=== PATIENT | male | born 1955 | race Caucasian/White ===

== ENCOUNTER 2020-09-20 19:23 | Inpatient (IN) | payer MEDICARE, OTHER ==
[~2020-09-20] VITALS: Ht 175.3 cm; Wt 78.0 kg
--- NOTE | 2020-09-20 19:50 | NUR ---
PATIENT WAS SEEN BY MD. HE IS AWAKE AND ALERT. EKG DONE. PT TO GO TO CT NOW...
[2020-09-20] MEDS ORDERED: MELA5TAB PO (19:52)
[2020-09-20] MEDS ORDERED: LISI-603 PO (19:52)
[2020-09-20] MEDS ORDERED: HYDR25TA4 PO (19:52)
[2020-09-20] MEDS ORDERED: GABA-532 PO (19:52)
[2020-09-20] MEDS ORDERED: ACETAMINOPHEN ES 500 MG TABLET PO ONE (20:30)
[2020-09-20] MEDS ORDERED: ACETAMINOPHEN ES 500 MG TABLET ONE (20:36)
[2020-09-20 20:46] LABS: CREATININE 1.1 mg/dL (0.6-1.3); POTASSIUM 3.3 mmol/L (3.5-5.1)
[2020-09-20 20:54] LABS: BILIRUBIN,DIRECT 0.4 mg/dL (0.0-0.2); BILIRUBIN,TOTAL 1.6 mg/dL (0.2-1.0); TOTAL PROTEIN, SERUM 7.5 g/dL (6.4-8.2)
[2020-09-20 20:57] LABS: BASOPHILS % (AUTO) 0.5 % (0.0-2.0); EOSINOPHILS # (AUTO) 0.2 K/uL (0.0-0.7); EOSINOPHILS % (AUTO) 2.5 % (0.0-7.0); HEMATOCRIT 42.7 % (36.7-47.1); HEMOGLOBIN 14.9 g/dL (12.5-16.3); LYMPHOCYTES # (AUTO) 1.2 K/uL (20.0-40.0); LYMPHOCYTES % (AUTO) 15.8 % (20.5-51.5); MEAN CORPUSCULAR HEMOGLOBIN 33.2 uug (23.8-33.4); MEAN CORPUSCULAR HGB CONC 35 g/dL (32.5-36.3); MEAN CORPUSCULAR VOLUME 95.5 fL (73.0-96.2); MONOCYTES % (AUTO) 13.2 % (0.0-11.0); PLATELET COUNT (AUTO) 96 K/uL (152-348); RED BLOOD CELL COUNT(AUTO) 4.47 MIL/uL (4.06-5.63); WHITE BLOOD COUNT (AUTO) 7.3 K/uL (3.6-10.2)
[2020-09-20] MEDS ORDERED: POTASSIUM BICARBONATE/CIT AC 25 MEQ TABLET.EFF PO ONE (21:15)
[2020-09-20 21:17] LABS: THYROID STIMULATING HORMONE 2.13 mIU/mL (0.358-3.740)
[2020-09-20] MEDS ORDERED: POTASSIUM BICARBONATE/CIT AC 25 MEQ TABLET.EFF ONE (21:25)
--- NOTE | 2020-09-20 21:27 | NUR ---
GIVEN REPORT TO BRITTAYN Mejias ADMITTING MD DR JOSE . MRSA SWAB DONE. PATIENT BELONGINGS DONE.
--- NOTE | 2020-09-20 21:43 | NUR ---
PATIENT BLIND ON LEFT EYE AND HASNT BEEN TAKING ANY MEDICATION. HE VERBALIZED "TAKING LISINOPRIL AND HYDROCHLROZTHIAZIDE BEFORE BUT NOT ANYMORE BECAUSE HIS BLOOD PRESSURE IS NORMAL" dR CLARKE MADE AWARE
[2020-09-20 21:50] VITALS: BP 136/88
[2020-09-20 21:55] VITALS: BP 136/88
--- NOTE | 2020-09-20 22:00 | NUR ---
ADMISSION NOTES :ADMITTING THIS 65Y MALE PATIENT FROM ER ACCOMPANIED BY ER NURSE VIA [facility] TO [facility] ROOM 137 A. PATIENT IS ON 5150 HOLD FOR GRAVELY DISABLED. HOLD STARTED ON 09/20/20 @09:00 AM AND UP ON 09/23/20 AT 09:00 AM, VS BP 136/88, P90, R19, TEMP 98.6, NO C/O PAIN OR DISCOMFORT AT THIS TIME. PATIENT IS STABLE AND MEDICALLY CLEARED , PATIENT WAS COVID NEGATIVE, NO SOB NOTED, PATIENT WERE ORIENTED TO THE UNIT , AND TO HIS ROOM, PATIENT CALM AND COOPERATIVE AT THIS TIME , NOTIFIED MD ABOUT THE ADMISSION
[2020-09-20] MEDS ORDERED: MAG HYDROX/AL HYDROX/SIMETH 30 ML LIQUID UDC PO PRN (22:30)
[2020-09-20] MEDS ORDERED: BLOOD SUGAR DIAGNOSTIC 1 EACH STRIP VI ONE (22:30)
[2020-09-20] MEDS ORDERED: ACETAMINOPHEN 325 MG TABLET PO PRN (22:30)
[2020-09-20] MEDS ORDERED: LORAZEPAM 0.5 MG TABLET PO PRN (22:30)
[2020-09-20] MEDS ORDERED: TEMAZEPAM 7.5 MG CAPSULE PO PRN (22:30)
[2020-09-20] MEDS ORDERED: MAGNESIUM HYDROXIDE 30 ML LIQUID UDC PO PRN (22:30)
[2020-09-20 22:58] LABS: BAND % (MANUAL) 2 % (0-10); EOSINOPHILS % (MANUAL) 5 % (0-8); LYMPHOCYTES % (MANUAL) 21 % (20-40); MONOCYTES % (MANUAL) 15 % (2-10); NEUTROPHILS % (MANUAL) 57 % (42-75)
[2020-09-21] MEDS ORDERED: IV NS 1000 ML 1,000 ML IV ONE (02:00)
--- NOTE | 2020-09-21 06:07 | NUR ---
GPS: Remain calm and cooperative with care. showered this morning. slept 6 hrs through the night. no agitation noted. resting in his bed comfortably. continue plan of care.
[2020-09-21 07:30] VITALS: BP 119/86
[2020-09-21] MEDS: LISINOPRIL 20 MG TABLET PO SCH (10:05)
[2020-09-21] MEDS: HYDROCHLOROTHIAZIDE 25 MG TABLET PO SCH (10:06)
[2020-09-21] MEDS: FLUOXETINE HCL 10 MG CAPSULE PO SCH (11:06)
--- NOTE | 2020-09-21 11:28 | NUR ---
Firearms Report DOJ: Human Resources Officer completed and submitted a [employer] firearms report for 5150 gravely disabled certification. A copy of report has been placed in patient chart.
--- NOTE | 2020-09-21 12:15 | NUR ---
Family Contact: Pt has family members who are not involved in his care. Pt will not provide their contact numbers.
--- NOTE | 2020-09-21 13:03 | NUR ---
Initial Discharge Plan: Pt currently resides at [facility] located at [address] [place] [address]. Pt would like to return at the time of discharge. MARI was unable to contact the Room and Board as there is no phone number. MARI will work with the pt and the MD regarding appropriate discharge planning. SW will form a safe and proper discharge.
[2020-09-21] MEDS: GABAPENTIN 100 MG CAPSULE PO SCH ×2 (13:30→16:56)
[2020-09-21 15:06] VITALS: BP 98/64
[2020-09-21 20:00] VITALS: BP 121/73
[2020-09-21] MEDS: SIMVASTATIN 20 MG TABLET PO SCH (20:14)
[2020-09-21] MEDS ORDERED: LORAZEPAM 0.5 MG TABLET PO PRN (20:30)
[2020-09-21] MEDS ORDERED: MAGNESIUM HYDROXIDE 30 ML LIQUID UDC PO PRN (20:30)
[2020-09-21] MEDS ORDERED: BLOOD SUGAR DIAGNOSTIC 1 EACH STRIP VI ONE (20:30)
[2020-09-21] MEDS ORDERED: MELATONIN 3 MG TABLET PO SCH (21:00)
[2020-09-22] MEDS: MAG HYDROX/AL HYDROX/SIMETH 30 ML LIQUID UDC PO PRN (01:28)
--- NOTE | 2020-09-22 05:42 | NUR ---
GPS/Rn - Received Pt up in his room, pt noted selectively isolated. Later on Pt was noted yelling and screaming on and off due he said nobody is helping him!. Pt was assisted and encouraged to vent out feeling appropriately, acknowledged understanding and pt requested for food or snack because he is hungry. Offer snacks and milk, Pt also took routine medications and cooperative. About 0100 Pt was noted vomiting and content were food texture and milk product. Pt said he feels his stomach is upset possibly because of the milk. Vital signs done and noted stable at BP145/97, HR/100, TEMP/97.4, R/19. No s/s of SOB and pt calm. Monitor and pt had another vomit still small food content. Mylanta 30cc given as order PRN for upset stomach. Reassessed and noted improvement. Pt sleeping and no new vomit noted. No new vomit and continue monitor. Pt slept up to 5.45hrs.
[2020-09-22 07:30] VITALS: BP 112/73
[2020-09-22] MEDS: LISINOPRIL 20 MG TABLET PO SCH (08:08)
[2020-09-22] MEDS: GABAPENTIN 100 MG CAPSULE PO SCH ×3 (08:08→16:52)
[2020-09-22] MEDS: FLUOXETINE HCL 10 MG CAPSULE PO SCH (08:09)
[2020-09-22] MEDS: HYDROCHLOROTHIAZIDE 25 MG TABLET PO SCH (08:09)
--- NOTE | 2020-09-22 11:03 | NUR ---
Gps/Central Office Associate- Recieved report from Shaun FERRIS, patient had been compliant with his am routine medications,, encouraged participation in his group therapy.
[2020-09-22 15:01] VITALS: BP 104/70
--- NOTE | 2020-09-22 18:15 | NUR ---
Gps/Bindery Machine Setter/Set Up Operator- Isolative , comes out of his room to ask for his simple needs. Complained of lightheaded while he was standig in the hallway. Ambulates around with front wheel walker, discouraged from wandering if feeling dizzy. Deneid dizziness when checked patient during dinner. Uses urinal , staff empties
[2020-09-22 19:55] VITALS: BP 107/68
[2020-09-22] MEDS: SIMVASTATIN 20 MG TABLET PO SCH (20:36)
[2020-09-22] MEDS ORDERED: OLANZAPINE 2.5 MG TABLET PO SCH (21:00)
--- NOTE | 2020-09-23 06:15 | NUR ---
Received patient in room , yelling at the PNP that was taking his blood pressure. Patient was mad because she simply asked him to hold his arm still. After that outburst, the patient laid in bed and put the covers over his head. Passenger Tire Builder attempted to engage in conversation with the patient , but there was no response at that time. Later, patient asked for a snack and was acting appropriately. Patient slept 8.45 hours. Continuing to monitor for safety and behavior escalation.
[2020-09-23 07:30] VITALS: BP 103/64
[2020-09-23] MEDS: LISINOPRIL 20 MG TABLET PO SCH (08:17)
[2020-09-23] MEDS: GABAPENTIN 100 MG CAPSULE PO SCH (08:19)
[2020-09-23] MEDS: FLUOXETINE HCL 10 MG CAPSULE PO SCH (08:19)
[2020-09-23] MEDS: HYDROCHLOROTHIAZIDE 25 MG TABLET PO SCH (08:20)
[2020-09-23] MEDS: VITAMIN B COMPLEX 1 TABLET PO SCH (13:38)
[2020-09-23] MEDS: GABAPENTIN 300 MG CAPSULE PO SCH ×2 (13:38→16:20)
[2020-09-23] MEDS: CHOLECALCIFEROL 1,000 UNIT TABLET PO SCH (13:38)
[2020-09-23 16:02] VITALS: BP 110/62
[2020-09-23 20:07] VITALS: BP 144/84
[2020-09-23] MEDS: SIMVASTATIN 20 MG TABLET PO SCH (20:32)
[2020-09-23] MEDS: OLANZAPINE 5 MG TABLET PO SCH (20:32)
[2020-09-23] MEDS: TEMAZEPAM 7.5 MG CAPSULE PO PRN (22:34)
[2020-09-24 07:30] VITALS: BP 132/95
[2020-09-24] MEDS: GABAPENTIN 300 MG CAPSULE PO SCH ×3 (08:14→17:27)
[2020-09-24] MEDS: CHOLECALCIFEROL 1,000 UNIT TABLET PO SCH (08:14)
[2020-09-24] MEDS: VITAMIN B COMPLEX 1 TABLET PO SCH (08:14)
[2020-09-24] MEDS: HYDROCHLOROTHIAZIDE 25 MG TABLET PO SCH (08:15)
[2020-09-24] MEDS: LISINOPRIL 20 MG TABLET PO SCH (08:15)
[2020-09-24 15:10] VITALS: BP 111/78
[2020-09-24] MEDS: ACETAMINOPHEN 325 MG TABLET PO PRN ×2 (17:32→20:32)
[2020-09-24 20:22] VITALS: BP 95/54
[2020-09-24] MEDS: OLANZAPINE 5 MG TABLET PO SCH (20:32)
[2020-09-24] MEDS: SIMVASTATIN 20 MG TABLET PO SCH (20:33)
--- NOTE | 2020-09-25 06:07 | NUR ---
nsg: slept 7 hrs through the night.
--- NOTE | 2020-09-25 06:35 | NUR ---
Received Pt awake in bed reading, A+Ox3, friendly on approach. A+Ox2, c/o 5/10 headache. Tylenol 650mg administered at 2234 with good effect. Pt is forgetful and states he "dose not remember" the events that brought him to the hospital. Denies SI, verbally contracts for safety. Denies AH/VH and no delusional behavior noted during shift. Compliant with medications, cooperative with staff direction. VS stable. In no acute physical distress.
[2020-09-25 07:30] VITALS: BP 109/64
[2020-09-25] MEDS: CHOLECALCIFEROL 1,000 UNIT TABLET PO SCH (08:30)
[2020-09-25] MEDS: GABAPENTIN 300 MG CAPSULE PO SCH ×3 (08:30→16:03)
[2020-09-25] MEDS: VITAMIN B COMPLEX 1 TABLET PO SCH (08:30)
[2020-09-25] MEDS: LISINOPRIL 20 MG TABLET PO SCH (08:30)
[2020-09-25] MEDS: HYDROCHLOROTHIAZIDE 25 MG TABLET PO SCH (08:31)
--- NOTE | 2020-09-25 08:35 | NUR ---
SNF Referral: This instructional writer sent to [facility] ([phone]) (fax: [phone]) faxed it to [facility] for clinical review.
--- NOTE | 2020-09-25 14:38 | NUR ---
SNF Referral: This health science writer contacted [facility] ([phone]) (f:[phone]) and sent clinicals for review [address]
--- NOTE | 2020-09-25 15:20 | NUR ---
SNF Referral: This ad copy writer received a phone call from Patito lobato from [address]; ([phone]) who stated patient is accepted
[2020-09-25 16:16] VITALS: BP 103/64
[2020-09-25] MEDS: ACETAMINOPHEN 325 MG TABLET PO PRN (17:55)
[2020-09-25 20:00] VITALS: BP 134/88
[2020-09-25] MEDS: SIMVASTATIN 20 MG TABLET PO SCH (20:24)
[2020-09-25] MEDS: OLANZAPINE 5 MG TABLET PO SCH (20:25)
[2020-09-25] MEDS: TEMAZEPAM 7.5 MG CAPSULE PO PRN (20:29)
--- NOTE | 2020-09-26 06:25 | NUR ---
Patient slept 9.15 hours throughout the night.
[2020-09-26 07:30] VITALS: BP 97/62
[2020-09-26] MEDS: VITAMIN B COMPLEX 1 TABLET PO SCH (08:04)
[2020-09-26] MEDS: HYDROCHLOROTHIAZIDE 25 MG TABLET PO SCH (08:05)
[2020-09-26] MEDS: GABAPENTIN 300 MG CAPSULE PO SCH ×3 (08:05→16:20)
[2020-09-26] MEDS: CHOLECALCIFEROL 1,000 UNIT TABLET PO SCH (08:05)
[2020-09-26] MEDS: LISINOPRIL 20 MG TABLET PO SCH (08:06)
--- NOTE | 2020-09-26 09:25 | NUR ---
Clinical Social Work Note Spoke with patient's brother, Mat ([phone]) who called HR this morning and alleged we were violating the patient's rights. He could not cite any violations but said we should not be " forcing her to have an MRI because she had a cerebral bleed some years ago". This clinician advised him that we do not force procedures on any patients and that she needs to consent to nay procedures. He also said "Dr Mckeon is abrupt" and he wants his mother treated with compassion. Advised Dr Mckeon and rn charge, Shaun re his complaint. Aliya, assigned social work specialist was also notified. he is aware and in agreement that patient should not return home due to the restraining order and circumstances with caregiver. Addendum: 09/26/20 at 0936 by NAINA GUERRA Please disregard above note. It was placed in this chart in error. Will add to correct chart.
--- NOTE | 2020-09-26 13:57 | NUR ---
MARI PC Hearing: Patient had probable cause hearing today and it was upheld for grave disability.
[2020-09-26 15:46] VITALS: BP 98/64
[2020-09-26 20:00] VITALS: BP 140/88
[2020-09-26] MEDS: OLANZAPINE 5 MG TABLET PO SCH (20:39)
[2020-09-26] MEDS: SIMVASTATIN 20 MG TABLET PO SCH (20:39)
--- NOTE | 2020-09-27 06:49 | NUR ---
GPS: Pt. refused scheduled blood drawing this am despite explanation of risks vs benefits x3.
[2020-09-27 07:30] VITALS: BP 121/91
[2020-09-27] MEDS: HYDROCHLOROTHIAZIDE 25 MG TABLET PO SCH (09:22)
[2020-09-27] MEDS: VITAMIN B COMPLEX 1 TABLET PO SCH (09:22)
[2020-09-27] MEDS: CHOLECALCIFEROL 1,000 UNIT TABLET PO SCH (09:22)
[2020-09-27] MEDS: GABAPENTIN 300 MG CAPSULE PO SCH ×3 (09:22→17:00)
[2020-09-27] MEDS: LISINOPRIL 20 MG TABLET PO SCH (09:23)
[2020-09-27 16:00] VITALS: BP 99/54
--- NOTE | 2020-09-27 18:17 | NUR ---
received pt is cooperative and interacts when engaged. Makes needs known to staff. pt keeps to self and stays in room.
[2020-09-27] MEDS: CLOTRIMAZOLE 1% CREAM 30 GM TUBE TOP SCH (19:30)
[2020-09-27 20:00] VITALS: BP 127/80
[2020-09-27] MEDS: SIMVASTATIN 20 MG TABLET PO SCH (21:13)
[2020-09-27] MEDS: OLANZAPINE 5 MG TABLET PO SCH (21:13)
--- NOTE | 2020-09-28 05:55 | NUR ---
GPS: Remain calm and cooperative with medications and care. showered this morning. still noted talking to him self. no agitation noted at this time. continue plan of care.
--- NOTE | 2020-09-28 06:48 | NUR ---
slept 7 hrs through the night.
[2020-09-28 07:13] LABS: CREATININE 1.1 mg/dL (0.6-1.3); POTASSIUM 4.2 mmol/L (3.5-5.1)
[2020-09-28 07:30] VITALS: BP 93/64
[2020-09-28 07:49] LABS: BASOPHILS % (AUTO) 0.3 % (0.0-2.0); EOSINOPHILS # (AUTO) 0.3 K/uL (0.0-0.7); EOSINOPHILS % (AUTO) 5.1 % (0.0-7.0); HEMATOCRIT 40.7 % (36.7-47.1); HEMOGLOBIN 13.6 g/dL (12.5-16.3); LYMPHOCYTES # (AUTO) 1.5 K/uL (20.0-40.0); LYMPHOCYTES % (AUTO) 24.2 % (20.5-51.5); MEAN CORPUSCULAR HEMOGLOBIN 32.9 uug (23.8-33.4); MEAN CORPUSCULAR HGB CONC 34 g/dL (32.5-36.3); MEAN CORPUSCULAR VOLUME 98.5 fL (73.0-96.2); MONOCYTES # (AUTO) 0.9 K/uL (2.0-10.0); MONOCYTES % (AUTO) 13.4 % (0.0-11.0); NEUTROPHILS # (AUTO) 3.6 K/uL (1.8-8.9); PLATELET COUNT (AUTO) 239 K/uL (152-348); RED BLOOD CELL COUNT(AUTO) 4.13 MIL/uL (4.06-5.63); WHITE BLOOD COUNT (AUTO) 6.4 K/uL (3.6-10.2)
[2020-09-28] MEDS: GABAPENTIN 300 MG CAPSULE PO SCH ×3 (08:25→17:04)
[2020-09-28] MEDS: VITAMIN B COMPLEX 1 TABLET PO SCH (08:25)
[2020-09-28] MEDS: CHOLECALCIFEROL 1,000 UNIT TABLET PO SCH (08:25)
[2020-09-28] MEDS: LISINOPRIL 20 MG TABLET PO SCH (08:27)
[2020-09-28] MEDS: HYDROCHLOROTHIAZIDE 25 MG TABLET PO SCH (08:27)
[2020-09-28] MEDS: CLOTRIMAZOLE 1% CREAM 30 GM TUBE TOP SCH ×2 (08:28→17:04)
[2020-09-28 16:00] VITALS: BP 106/64
[2020-09-28 20:16] VITALS: BP 104/74
[2020-09-28] MEDS: OLANZAPINE 5 MG TABLET PO SCH (20:17)
[2020-09-28] MEDS: SIMVASTATIN 20 MG TABLET PO SCH (20:17)
--- NOTE | 2020-09-29 05:57 | NUR ---
Patient slept 7.00 hours last night. No issues noted, except patient is refusing to remove his neckless for "roman catholic reasons". Pricing Coordinator will encourage compliance and continue to make frequent rounds to ensure patients safety. Patient denies SI at this time.
[2020-09-29 07:30] VITALS: BP 114/74
[2020-09-29] MEDS: MAG HYDROX/AL HYDROX/SIMETH 30 ML LIQUID UDC PO PRN (07:43)
[2020-09-29] MEDS: VITAMIN B COMPLEX 1 TABLET PO SCH (08:35)
[2020-09-29] MEDS: GABAPENTIN 300 MG CAPSULE PO SCH ×3 (08:36→17:36)
[2020-09-29] MEDS: HYDROCHLOROTHIAZIDE 25 MG TABLET PO SCH (08:36)
[2020-09-29] MEDS: LISINOPRIL 20 MG TABLET PO SCH (08:37)
[2020-09-29] MEDS: CHOLECALCIFEROL 1,000 UNIT TABLET PO SCH (08:37)
[2020-09-29] MEDS: CLOTRIMAZOLE 1% CREAM 30 GM TUBE TOP SCH ×2 (08:37→17:37)
[2020-09-29 16:01] VITALS: BP 132/86
--- NOTE | 2020-09-29 19:09 | NUR ---
Received patient in his room in bed sleeping but easily arousable. he is noted A/O x 3. Calm and pleasant upon approached. He is able to ambulate with steady gait and able to make his needs known. patient denied, SI/HI/VH/AH. he is able to verbalized feelings. Patient V/S stable at this time. he is reassured for his safety. safety and fall precaution in place. will continue to monitor.
[2020-09-29 20:00] VITALS: BP 136/62
[2020-09-29] MEDS: OLANZAPINE 5 MG TABLET PO SCH (20:36)
[2020-09-29] MEDS: SIMVASTATIN 20 MG TABLET PO SCH (20:37)
[2020-09-29] MEDS: ACETAMINOPHEN 325 MG TABLET PO PRN (23:47)
[2020-09-30 07:30] VITALS: BP 98/65
[2020-09-30] MEDS: GABAPENTIN 300 MG CAPSULE PO SCH ×3 (08:02→16:37)
[2020-09-30] MEDS: CHOLECALCIFEROL 1,000 UNIT TABLET PO SCH (08:02)
[2020-09-30] MEDS: VITAMIN B COMPLEX 1 TABLET PO SCH (08:02)
[2020-09-30] MEDS: LISINOPRIL 20 MG TABLET PO SCH (08:03)
[2020-09-30] MEDS: HYDROCHLOROTHIAZIDE 25 MG TABLET PO SCH ×2 (08:03→08:05)
[2020-09-30] MEDS: CLOTRIMAZOLE 1% CREAM 30 GM TUBE TOP SCH ×2 (08:04→16:38)
[2020-09-30 16:00] VITALS: BP 91/50
[2020-09-30 19:57] VITALS: BP 118/76
[2020-09-30] MEDS: OLANZAPINE 5 MG TABLET PO SCH (21:05)
[2020-09-30] MEDS: SIMVASTATIN 20 MG TABLET PO SCH (21:05)
--- NOTE | 2020-10-01 05:16 | NUR ---
Patient up and down last night in his room. Total sleep 4.00 hours. Patient made sexually inappropriate gestures towards the play writer. Wanting to have play writer apply ointment to his groin and calling the play writer " Babe" and " Honey". Rubber Liner also noted patient is labile and angers easily. Limits were set and patient is being monitored for safety and behavior escalation. Encouragement given to patient to practice self care. No SI or HI at this time.
[2020-10-01 07:30] VITALS: BP 134/77
[2020-10-01] MEDS: GABAPENTIN 300 MG CAPSULE PO SCH ×3 (08:19→16:53)
[2020-10-01] MEDS: VITAMIN B COMPLEX 1 TABLET PO SCH (08:19)
[2020-10-01] MEDS: LISINOPRIL 20 MG TABLET PO SCH (08:19)
[2020-10-01] MEDS: CHOLECALCIFEROL 1,000 UNIT TABLET PO SCH (08:19)
[2020-10-01] MEDS: HYDROCHLOROTHIAZIDE 25 MG TABLET PO SCH (08:19)
[2020-10-01] MEDS: CLOTRIMAZOLE 1% CREAM 30 GM TUBE TOP SCH ×2 (08:20→16:54)
[2020-10-01 12:00] LABS: BASOPHILS # (AUTO) 0.1 K/uL (0.0-8.0); BASOPHILS % (AUTO) 1.1 % (0.0-2.0); EOSINOPHILS # (AUTO) 0.3 K/uL (0.0-0.7); EOSINOPHILS % (AUTO) 3.5 % (0.0-7.0); HEMATOCRIT 37.5 % (36.7-47.1); HEMOGLOBIN 12.7 g/dL (12.5-16.3); LYMPHOCYTES # (AUTO) 1.6 K/uL (20.0-40.0); LYMPHOCYTES % (AUTO) 20.9 % (20.5-51.5); MEAN CORPUSCULAR HGB CONC 34 g/dL (32.5-36.3); MEAN CORPUSCULAR VOLUME 97.1 fL (73.0-96.2); MONOCYTES # (AUTO) 0.8 K/uL (2.0-10.0); MONOCYTES % (AUTO) 9.6 % (0.0-11.0); NEUTROPHILS # (AUTO) 5.1 K/uL (1.8-8.9); NEUTROPHILS % (AUTO) 64.9 % (38.5-71.5); PLATELET COUNT (AUTO) 373 K/uL (152-348); RED BLOOD CELL COUNT(AUTO) 3.86 MIL/uL (4.06-5.63); WHITE BLOOD COUNT (AUTO) 7.8 K/uL (3.6-10.2)
[2020-10-01 12:07] LABS: BILIRUBIN,TOTAL 0.3 mg/dL (0.2-1.0); CREATININE 1.3 mg/dL (0.6-1.3); TOTAL PROTEIN, SERUM 6.6 g/dL (6.4-8.2)
[2020-10-01 16:00] VITALS: BP 134/68
[2020-10-01] MEDS: ACETAMINOPHEN 325 MG TABLET PO PRN (17:18)
[2020-10-01 19:59] VITALS: BP 136/66
[2020-10-01] MEDS: SIMVASTATIN 20 MG TABLET PO SCH (20:08)
[2020-10-01] MEDS: OLANZAPINE 5 MG TABLET PO SCH (20:08)
[2020-10-01] MEDS: TEMAZEPAM 7.5 MG CAPSULE PO PRN (22:18)
[2020-10-02 07:32] VITALS: BP 105/62
[2020-10-02] MEDS: HYDROCHLOROTHIAZIDE 25 MG TABLET PO SCH (08:12)
[2020-10-02] MEDS: VITAMIN B COMPLEX 1 TABLET PO SCH (08:13)
[2020-10-02] MEDS: LISINOPRIL 20 MG TABLET PO SCH (08:13)
[2020-10-02] MEDS: GABAPENTIN 300 MG CAPSULE PO SCH ×3 (08:13→16:42)
[2020-10-02] MEDS: CLOTRIMAZOLE 1% CREAM 30 GM TUBE TOP SCH ×2 (08:14→16:43)
[2020-10-02] MEDS: CHOLECALCIFEROL 1,000 UNIT TABLET PO SCH (08:14)
--- NOTE | 2020-10-02 10:20 | NUR ---
MARI Individual Therapy: SW met with patient to provide brief individual counseling and address patient's neglecting self-care. Patient did not want to be bothered at this time and stated that he is "feeling tired'. SW encouraged patient to join group therapy at least twice daily and highlighted importance of peer interaction.
[2020-10-02 11:58] LABS: *BILIRUBIN,URIN NEGATIVE (NEGATIVE); *BLOOD, URINE NEGATIVE (NEGATIVE); *CLARITY,URINE SLIGHTLY CLOUDY (CLEAR); *COLOR,URINE YELLOW (YELLOW); *KETONES,URINE NEGATIVE (NEGATIVE); *UROBILINOGEN,URINE 0.2 E.U./dl (NORMAL); LEUKOCYTE ESTERASE ,URINE NEGATIVE (NEGATIVE); NITRITE, URINE NEGATIVE (NEGATIVE); UGLUCOSE NEGATIVE (NEGATIVE)
[2020-10-02] MEDS: HALOPERIDOL 5 MG TABLET PO SCH ×2 (12:20→20:00)
--- NOTE | 2020-10-02 13:29 | NUR ---
Patient discharged to [facility] . [facility] and care offensive coordinator provided transportation was here at 1330 pm.all personal belonging returned to Patient . Patient presents with euthymic mood and congruent affect. Patient does not have supportive contacts. Patient will be following up with Ceramic Tile Installer Dr. Steven Glez @([phone]) and Psychiatrist Dr. Herminio Glover @ ([phone]) at the facility. Addendum: 10/02/20 at 1801 by DEAN SAUCEDO RN GPS: Nursing Notes: Disregard Above Note: Disregard the above note, charted on the wrong patient.
[2020-10-02 15:12] LABS: RBC,URINE 0-3 /HPF (0-3); WBC,URINE 0-3 /HPF (0-3)
[2020-10-02 15:13] LABS: BACTERIA,URINE NONE SEEN /HPF (NONE SEEN); SQUAMOUS EPITHELIAL CELL,UR NONE SEEN /HPF (NONE SEEN)
[2020-10-02 17:03] VITALS: BP 110/78
--- NOTE | 2020-10-02 18:45 | NUR ---
patient remains isolative keep to self, compliant with all medication..
[2020-10-02 20:00] VITALS: BP 131/84
[2020-10-02] MEDS ORDERED: OLANZAPINE 5 MG TABLET PO SCH (21:00)
[2020-10-03] MEDS: TEMAZEPAM 7.5 MG CAPSULE PO PRN (00:11)
[2020-10-03] MEDS: LISINOPRIL 20 MG TABLET PO SCH (08:39)
[2020-10-03] MEDS: HYDROCHLOROTHIAZIDE 25 MG TABLET PO SCH (08:39)
[2020-10-03] MEDS: CLOTRIMAZOLE 1% CREAM 30 GM TUBE TOP SCH ×2 (08:39→16:36)
[2020-10-03] MEDS: CHOLECALCIFEROL 1,000 UNIT TABLET PO SCH (08:42)
[2020-10-03] MEDS: VITAMIN B COMPLEX 1 TABLET PO SCH (08:43)
[2020-10-03] MEDS: LORAZEPAM 0.5 MG TABLET PO SCH ×3 (10:00→16:37)
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
--- NOTE | 2020-10-03 11:29 | NUR ---
MARI Individual intervention: SW met with patient today to discuss discharge planning. Patient was initially agitated and was demanding to go home. After explaining to the patient that the doctor recommends a usp, and that this sw spoke with Britney health administrator from his [facility] facility ([phone]) who agrees with this plan, patient is now agreeable.
[2020-10-03] MEDS: GABAPENTIN 300 MG CAPSULE PO SCH ×2 (12:37→16:38)
[2020-10-03] MEDS: HALOPERIDOL 5 MG TABLET PO SCH ×2 (12:38→20:35)
[2020-10-03 16:03] VITALS: BP 143/84
[2020-10-03 20:05] VITALS: BP 146/78
[2020-10-03] MEDS ORDERED: TEMAZEPAM 7.5 MG CAPSULE PO PRN (21:00)
[2020-10-04 07:42] VITALS: BP 122/79
[2020-10-04] MEDS: HALOPERIDOL 5 MG TABLET PO SCH ×4 (08:18→21:03)
[2020-10-04] MEDS: VITAMIN B COMPLEX 1 TABLET PO SCH (08:18)
[2020-10-04] MEDS: GABAPENTIN 300 MG CAPSULE PO SCH ×4 (08:18→21:03)
[2020-10-04] MEDS: HYDROCHLOROTHIAZIDE 25 MG TABLET PO SCH (08:19)
[2020-10-04] MEDS: LORAZEPAM 0.5 MG TABLET PO SCH ×3 (08:19→17:26)
[2020-10-04] MEDS: CHOLECALCIFEROL 1,000 UNIT TABLET PO SCH (08:19)
[2020-10-04] MEDS: LISINOPRIL 20 MG TABLET PO SCH (08:20)
[2020-10-04] MEDS: BENZTROPINE MESYLATE 0.5 MG TABLET PO SCH ×2 (13:08→17:26)
[2020-10-04] MEDS: CLOTRIMAZOLE 1% CREAM 30 GM TUBE TOP SCH ×2 (13:09→17:27)
--- NOTE | 2020-10-04 16:00 | NUR ---
Gps/crank hand- Showered self ind. after set up. Stayed in his room most of the time . verbalized feelings and needs, compliant with medications. refused staff to apply cream to his groin area, lotrisone creaam 1%provided pt. to apply. Interactive with staff , claimed looking forward to be able to go back to his place.,
[2020-10-04 16:26] VITALS: BP 105/67
[2020-10-04 20:00] VITALS: BP 89/54
[2020-10-04 21:01] VITALS: BP 116/71
[2020-10-05 07:30] VITALS: BP 124/88
[2020-10-05 08:06] LABS: BASOPHILS # (AUTO) 0.1 K/uL (0.0-8.0); BASOPHILS % (AUTO) 0.9 % (0.0-2.0); EOSINOPHILS # (AUTO) 0.4 K/uL (0.0-0.7); EOSINOPHILS % (AUTO) 3.6 % (0.0-7.0); HEMATOCRIT 40.8 % (36.7-47.1); HEMOGLOBIN 13.7 g/dL (12.5-16.3); LYMPHOCYTES # (AUTO) 3.1 K/uL (20.0-40.0); LYMPHOCYTES % (AUTO) 30.9 % (20.5-51.5); MEAN CORPUSCULAR HEMOGLOBIN 33.3 uug (23.8-33.4); MEAN CORPUSCULAR HGB CONC 34 g/dL (32.5-36.3); MEAN CORPUSCULAR VOLUME 99.3 fL (73.0-96.2); MONOCYTES # (AUTO) 0.7 K/uL (2.0-10.0); NEUTROPHILS # (AUTO) 5.7 K/uL (1.8-8.9); NEUTROPHILS % (AUTO) 57.6 % (38.5-71.5); PLATELET COUNT (AUTO) 383 K/uL (152-348); RED BLOOD CELL COUNT(AUTO) 4.11 MIL/uL (4.06-5.63); WHITE BLOOD COUNT (AUTO) 9.9 K/uL (3.6-10.2)
[2020-10-05 08:08] LABS: BILIRUBIN,TOTAL 0.3 mg/dL (0.2-1.0); CREATININE 1.1 mg/dL (0.6-1.3); PHOSPHOROUS 4.7 mg/dL (2.5-4.9); POTASSIUM 5.3 mmol/L (3.5-5.1); TOTAL PROTEIN, SERUM 7.6 g/dL (6.4-8.2)
[2020-10-05] MEDS: VITAMIN B COMPLEX 1 TABLET PO SCH (09:26)
[2020-10-05] MEDS: LISINOPRIL 20 MG TABLET PO SCH (09:26)
[2020-10-05] MEDS: CHOLECALCIFEROL 1,000 UNIT TABLET PO SCH (09:26)
[2020-10-05] MEDS: CYANOCOBALAMIN 1,000 MCG TABLET PO SCH (09:27)
[2020-10-05] MEDS: LORAZEPAM 0.5 MG TABLET PO SCH ×2 (09:27→13:55)
[2020-10-05] MEDS: GABAPENTIN 300 MG CAPSULE PO SCH ×4 (09:28→20:54)
[2020-10-05] MEDS: HYDROCHLOROTHIAZIDE 25 MG TABLET PO SCH (09:28)
[2020-10-05] MEDS: HALOPERIDOL 5 MG TABLET PO SCH ×3 (09:28→17:00)
[2020-10-05] MEDS: BENZTROPINE MESYLATE 0.5 MG TABLET PO SCH ×3 (09:28→17:43)
[2020-10-05] MEDS: CLOTRIMAZOLE 1% CREAM 30 GM TUBE TOP SCH ×2 (10:07→17:00)
--- NOTE | 2020-10-05 11:24 | NUR ---
SW NOTE: Patient requested this social services analyst to give his car keys to his friend, Darci Holguin who can come and pic them up from the hospital. This social services analyst stated that we can arrange for that today. Addendum: 10/05/20 at 1322 by CASSANDRA MATTHEWS This social services analyst greeted Darci at security and gave the patient's car keys, per patient's request.
[2020-10-05 16:00] VITALS: BP 97/64
--- NOTE | 2020-10-05 17:14 | NUR ---
BP R arm 83/42, L arm 73/41, temp 98.0, pulse 87, O2 sat 100%, respirations 17. Patient states he feels dizzy, lightheaded, and suddenly felt "not normal" while laying in bed. patient is arousable to name and light touch. patient placed in Trendelenburg position and provided with bottle of water. patient able to tolerate water. Dr. Mckeon notified: orders given to Discontinue routine Ativan, change Haldol from QID to TID and hold 1700 dose, and stat EKG. Dr. Wu notified of patient's status and results of EKG: orders given for stat CXR, stat CBC and CMP, Lactic Acid, Troponin, and urinalysis with urine culture and sensitivity.
[2020-10-05 17:42] LABS: BASOPHILS # (AUTO) 0.1 K/uL (0.0-8.0); BASOPHILS % (AUTO) 1.1 % (0.0-2.0); EOSINOPHILS # (AUTO) 0.3 K/uL (0.0-0.7); HEMATOCRIT 37.2 % (36.7-47.1); HEMOGLOBIN 12.6 g/dL (12.5-16.3); LYMPHOCYTES # (AUTO) 1.9 K/uL (20.0-40.0); LYMPHOCYTES % (AUTO) 22.2 % (20.5-51.5); MEAN CORPUSCULAR HEMOGLOBIN 32.9 uug (23.8-33.4); MEAN CORPUSCULAR HGB CONC 34 g/dL (32.5-36.3); MEAN CORPUSCULAR VOLUME 97.3 fL (73.0-96.2); MONOCYTES # (AUTO) 0.7 K/uL (2.0-10.0); MONOCYTES % (AUTO) 8.3 % (0.0-11.0); NEUTROPHILS # (AUTO) 5.6 K/uL (1.8-8.9); NEUTROPHILS % (AUTO) 64.4 % (38.5-71.5); PLATELET COUNT (AUTO) 368 K/uL (152-348); RED BLOOD CELL COUNT(AUTO) 3.82 MIL/uL (4.06-5.63); WHITE BLOOD COUNT (AUTO) 8.8 K/uL (3.6-10.2)
--- NOTE | 2020-10-05 17:42 | NUR ---
Rechecked BP: 97/64, pulse 101. patient is laying down quietly in his assigned bed. patient provided with dinner tray and given water and juice. instructed to inform staff if any symptoms of hypotension occur, able to verbalize understanding.
[2020-10-05 17:57] LABS: BILIRUBIN,TOTAL 0.3 mg/dL (0.2-1.0); CREATININE 1.2 mg/dL (0.6-1.3); POTASSIUM 4.1 mmol/L (3.5-5.1); TOTAL PROTEIN, SERUM 6.6 g/dL (6.4-8.2)
[2020-10-05 20:00] VITALS: BP 101/69
--- NOTE | 2020-10-06 06:36 | NUR ---
GPS/Rn - Received endorsement from outgoing nurse per abnormal BP. Patient was awake and responded to name and denied changes. No c/o pain and denied SI/HI. Cooperative with care and meds. B/P was rechecked and noted 101/89 lying and HR 97. Pt slept well during night, only awake one episode and asked for snack. Return back to bed slept without issue and no PRN given during shift.
[2020-10-06 07:30] VITALS: BP 112/62
[2020-10-06] MEDS: CHOLECALCIFEROL 1,000 UNIT TABLET PO SCH (08:50)
[2020-10-06] MEDS: VITAMIN B COMPLEX 1 TABLET PO SCH (08:50)
[2020-10-06] MEDS: CYANOCOBALAMIN 1,000 MCG TABLET PO SCH (08:51)
[2020-10-06] MEDS: HALOPERIDOL 5 MG TABLET PO SCH ×3 (08:51→16:30)
[2020-10-06] MEDS: CLOTRIMAZOLE 1% CREAM 30 GM TUBE TOP SCH ×2 (08:52→16:30)
[2020-10-06] MEDS: BENZTROPINE MESYLATE 0.5 MG TABLET PO SCH ×3 (08:52→16:29)
[2020-10-06] MEDS: GABAPENTIN 300 MG CAPSULE PO SCH ×4 (08:52→21:19)
[2020-10-06] MEDS: HYDROCHLOROTHIAZIDE 25 MG TABLET PO SCH (08:52)
[2020-10-06] MEDS: LISINOPRIL 20 MG TABLET PO SCH (08:53)
[2020-10-06 14:59] LABS: *BILIRUBIN,URIN NEGATIVE (NEGATIVE); *BLOOD, URINE NEGATIVE (NEGATIVE); *CLARITY,URINE CLEAR (CLEAR); *COLOR,URINE YELLOW (YELLOW); *KETONES,URINE NEGATIVE (NEGATIVE); *UROBILINOGEN,URINE 0.2 E.U./dl (NORMAL); LEUKOCYTE ESTERASE ,URINE NEGATIVE (NEGATIVE); NITRITE, URINE NEGATIVE (NEGATIVE); UGLUCOSE NEGATIVE (NEGATIVE)
[2020-10-06 15:15] VITALS: BP 98/56
--- NOTE | 2020-10-06 16:00 | NUR ---
Gps/court reporter- Showered self ind. after set up, groomed self with supervision by SOFTWARE TEST AND VALIDATION ENGINEER. had been cooperative, interacting with the staff , always thinking highly of self, claimed he does not want to attend group therapy, r/t peers are just confused and talking to their self. and he needs to get out from here soon. he also requesting double portion of food during breakfast only.
[2020-10-06 20:00] VITALS: BP 100/55
[2020-10-07 08:00] VITALS: BP 112/64
[2020-10-07] MEDS: GABAPENTIN 300 MG CAPSULE PO SCH ×4 (08:35→20:18)
[2020-10-07] MEDS: VITAMIN B COMPLEX 1 TABLET PO SCH (08:35)
[2020-10-07] MEDS: HALOPERIDOL 5 MG TABLET PO SCH ×3 (08:35→17:04)
[2020-10-07] MEDS: BENZTROPINE MESYLATE 0.5 MG TABLET PO SCH ×3 (08:36→17:05)
[2020-10-07] MEDS: CHOLECALCIFEROL 1,000 UNIT TABLET PO SCH (08:36)
[2020-10-07] MEDS: LISINOPRIL 20 MG TABLET PO SCH (08:36)
[2020-10-07] MEDS: CYANOCOBALAMIN 1,000 MCG TABLET PO SCH (08:38)
[2020-10-07] MEDS: CLOTRIMAZOLE 1% CREAM 30 GM TUBE TOP SCH ×2 (08:38→17:05)
[2020-10-07 16:00] VITALS: BP 95/63
[2020-10-07 19:56] VITALS: BP 116/64
[2020-10-08 07:30] VITALS: BP 120/79
[2020-10-08] MEDS: LISINOPRIL 20 MG TABLET PO SCH (08:42)
[2020-10-08] MEDS: CYANOCOBALAMIN 1,000 MCG TABLET PO SCH (08:42)
[2020-10-08] MEDS: CHOLECALCIFEROL 1,000 UNIT TABLET PO SCH (08:42)
[2020-10-08] MEDS: VITAMIN B COMPLEX 1 TABLET PO SCH (08:42)
[2020-10-08] MEDS: HALOPERIDOL 5 MG TABLET PO SCH ×3 (08:42→16:43)
[2020-10-08] MEDS: BENZTROPINE MESYLATE 0.5 MG TABLET PO SCH ×3 (08:42→16:43)
[2020-10-08] MEDS: GABAPENTIN 300 MG CAPSULE PO SCH ×4 (08:42→20:21)
[2020-10-08] MEDS: CLOTRIMAZOLE 1% CREAM 30 GM TUBE TOP SCH ×2 (08:43→16:44)
--- NOTE | 2020-10-08 13:10 | NUR ---
SNF Contact: SW contacted [facility] ([phone]) (f:[phone]) and spoke to Patito who stated that the SW needs to send updated clinicals to see if the pt is still accepted to their facility. SW sent clinicals for review [address]
[2020-10-08 15:18] VITALS: BP 100/59
[2020-10-08] MEDS: ACETAMINOPHEN 325 MG TABLET PO PRN (15:52)
[2020-10-08 20:03] VITALS: BP 118/62
[2020-10-09 07:30] VITALS: BP 143/92
[2020-10-09] MEDS: CHOLECALCIFEROL 1,000 UNIT TABLET PO SCH (08:23)
[2020-10-09] MEDS: GABAPENTIN 300 MG CAPSULE PO SCH ×3 (08:23→16:57)
[2020-10-09] MEDS: LISINOPRIL 20 MG TABLET PO SCH (08:23)
[2020-10-09] MEDS: BENZTROPINE MESYLATE 0.5 MG TABLET PO SCH ×3 (08:23→16:57)
[2020-10-09] MEDS: HALOPERIDOL 5 MG TABLET PO SCH ×3 (08:23→16:57)
[2020-10-09] MEDS: CYANOCOBALAMIN 1,000 MCG TABLET PO SCH (08:23)
[2020-10-09] MEDS: CLOTRIMAZOLE 1% CREAM 30 GM TUBE TOP SCH ×2 (08:24→16:57)
[2020-10-09] MEDS: VITAMIN B COMPLEX 1 TABLET PO SCH (08:26)
--- NOTE | 2020-10-09 08:45 | NUR ---
[facility] Contact: MARI faxed a COVID result and most recent progress note to Robyn [facility] with attn to Patito to the fax number: [phone].
--- NOTE | 2020-10-09 08:50 | NUR ---
Discharge Note: Pt will be discharged to [facility] located at the address: [address], [place] [address]; . Pt will be transported via [facility] at 11AM. Britney ([phone]), from pts Board and Care, was made aware. Pt provided the SW with permission to contact pts son, Freddy ([phone]), who was made aware of the discharge. Upon discharge, the pt appears to be in a euthymic mood and presented with a calm affect. The pt denies both suicidal and homicidal ideation as well as auditory and visual hallucinations. Pt appears to be alert and oriented x4 (time, place, self and situation). Pt appears to be well groomed and appropriately dressed. Pt appears to be ambulatory with an unsteady gait. Pt will continue to be under the care of his psychiatrist, Dr. Mckeon located at [address], [place] [address]; and his ux consultant, Dr. Freeman, located at [address], [place] [address]; . Pt signed the Choice of Vendor form and the multidisciplinary exit care form was done, printed, signed, and given to the patient.
--- NOTE | 2020-10-09 09:28 | NUR ---
Family Contact: SW called the pts son, Freddy ([phone]), and informed him that that the pt provided her with verbal permission to speak to him as today is his day of discharge and he wanted his son to have the information of the facility that he is being discharged to. SW provided the pts son with information on the SNF and informed him about his stay at the hospital and the reasoning for the SNF discharge. Pts son inquired about how he can make decisions for the pt as he fears he is losing more cognitive function and SW explained what the role of a DPOA includes.
--- NOTE | 2020-10-09 11:25 | NUR ---
Facility Contact: SW spoke to [facility] ([phone]), [facility] admissions, and she stated that the pt was not accepted to their facility per DON. She encouraged the SW to speak to the DON.
--- NOTE | 2020-10-09 11:26 | NUR ---
Facility Contact: SW called [facility] ([phone]) and spoke to the DON who stated that they never received the initial referral and so the pt was never accepted to their facility. MARI stated that there are notes in the system of the referral being sent and receiving information from a staff member by the name lyndsay Caputo that the pt was accepted. BETHANY stated that was not accurate based off the updated clinical that the SW sent yesterday the pt was not accepted.
--- NOTE | 2020-10-09 11:28 | NUR ---
SNF Referral: MARI faxed a referral to [facility] with attention to Shaun to the fax number: [phone].
--- NOTE | 2020-10-09 13:02 | NUR ---
Revised Discharge Note: Pt will be discharged to [facility] located at the address: [address] [place] [address]; ([phone]). Pt will be transported via [facility] at 3PM. Britney ([phone]), from pts Board and Care, was made aware. Pt provided the with permission to contact pts son, Freddy ([phone]), who was made aware of the discharge. Upon discharge, the pt appears to be in a euthymic mood and presented with a calm affect. The pt denies both suicidal and homicidal ideation as well as auditory and visual hallucinations. Pt appears to be alert and oriented x4 (time, place, self and situation). Pt appears to be well groomed and appropriately dressed. Pt appears to be ambulatory with an unsteady gait. Pt will continue to be under the care of his psychiatrist, Dr. Mckeon located at [address], [place] [address]; and his manager of product, Dr. Freeman, located at [address] [address]; . Pt signed the Choice of Vendor form and the multidisciplinary exit care form was done, printed, signed, and given to the patient. Addendum: 10/09/20 at 1310 by MARI JAIMES manager of product, Dr. Brush, located at [address], [place] [address]; . Addendum: 10/09/20 at 1320 by MARI JAIMES Pt will be leaving around 6pm.
[2020-10-09 16:27] VITALS: BP 120/75
--- NOTE | 2020-10-09 18:15 | NUR ---
GPS: Nursing Notes: Discharge Notes: Patient is awake and responding to his name, cooperative with nursing care, compliant with his medications, following staff directions, A/Ox4, denies SI/HI, denies AH/VH, denies pain or discomfort, denies SOB, discharge to [facility] at [address] [place] [address] , report given to charge nurse - Seema, took all his belongings with him, transported to facility via ambulance, patient's son, Freddy was notify by clinical social worker. Patient will continue to be under the care of his psychiatrist, Dr. Mckeon (psychiatrist) located at [address], [place] [address]; and his loader operator supervisor and Dr. Brush (loader operator supervisor) located at [address], [place] [address]; for aftercare at the facility.
== END 2020-10-09 18:15 | DRG 885 ==
LOC: ER 19:23 → GPS 22:06
PROVIDERS: ADMIT Psychiatry & Neurology Psychosomatic Medicine; ATTEND Nurse Practitioner Acute Care
DX: F25.0 Schizoaffective disorder, bipolar type (principal); F01.50 Vascular dementia, unspecified severity, without behavioral disturbance, psychotic disturbance, mood disturbance, and anxiety; E43 Unspecified severe protein-calorie malnutrition; N17.0 Acute kidney failure with tubular necrosis; M62.82 Rhabdomyolysis; F23 Brief psychotic disorder; H33.22 Serous retinal detachment, left eye; H54.62 Unqualified visual loss, left eye, normal vision right eye; E78.5 Hyperlipidemia, unspecified; E87.6 Hypokalemia; D69.6 Thrombocytopenia, unspecified; I10 Essential (primary) hypertension; R73.9 Hyperglycemia, unspecified; F41.9 Anxiety disorder, unspecified; R74.01 Elevation of levels of liver transaminase levels; E53.8 Deficiency of other specified B group vitamins; Z68.25 Body mass index [BMI] 25.0-25.9, adult; K76.0 Fatty (change of) liver, not elsewhere classified
CPT/HCPCS: 36415; 70030-TC; 70450; 71045; 72125; 76705; 83605; 83690; 83735; 83921; 84100; 84443; 85025; 87086; 93005; A4663; A9150; J7030